=== PATIENT | female | born 2000 | race Caucasian/White ===

== ENCOUNTER 2020-11-03 16:34 | Inpatient (IN) | payer OTHER ==
[~2020-11-03] VITALS: Ht 157.5 cm; Wt 80.3 kg
[2020-11-03 17:36] LABS: HEMOGLOBIN 11.8 gm/dl (12.3-15.3); RED BLOOD COUNT 4.08 M/UL (4.00-5.10); WHITE BLOOD COUNT 8.8 K/UL (4.5-11.0)
[2020-11-04] MEDS ORDERED: POLYETHYLENE GL17 GM PO (13:45)
[2020-11-04] MEDS ORDERED: IBUPROFEN600 MG PO (13:45)
[2020-11-04] MEDS ORDERED: HYDROCODON-ACE1 EAC4 PO (13:45)
[2020-11-05 05:10] LABS: HEMOGLOBIN 11.1 gm/dl (12.3-15.3)
== END 2020-11-06 14:50 | disposition home or self-care (01) | DRG 768 ==
LOC: GENOP 16:34 → OB 17:00
PROVIDERS: Obstetrics & Gynecology; ADMIT Obstetrics & Gynecology
PROC: 10E0XZZ Delivery of Products of Conception, External Approach (ICD-10-PCS; principal; 2020-11-04)
PROC: 0DQR0ZZ Repair Anal Sphincter, Open Approach (ICD-10-PCS; 2020-11-04)
PROC: 10907ZC Drainage of Amniotic Fluid, Therapeutic from Products of Conception, Via Natural or Artificial Opening (ICD-10-PCS; 2020-11-04)
PROC: 0U7C7ZZ Dilation of Cervix, Via Natural or Artificial Opening (ICD-10-PCS; 2020-11-04)
PROC: 4A1HXCZ Monitoring of Products of Conception, Cardiac Rate, External Approach (ICD-10-PCS; 2020-11-04)
DX: O70.20 Third degree perineal laceration during delivery, unspecified (principal); Z37.0 Single live birth; Z3A.39 39 weeks gestation of pregnancy; Z20.822 Contact with and (suspected) exposure to COVID-19
CPT/HCPCS: 36415; 51702; 81001; 82800; 85014; 85018; 85025; 90471; 90472; 90715; J0690; J2590; U0003